=== PATIENT | female | born 1960 | race Caucasian/White ===

== ENCOUNTER 2019-11-10 12:04 | Outpatient (REF) | payer OTHER, SELFPAY ==
[2019-11-10 21:34] LABS: ALT 23 U/L (14-59); AST 19 U/L (15-37); Alkaline Phosphatase 92 U/L (46-116); Anion Gap 9.6 mmol/L (3-11); BUN 21 mg/dL (7-18); Bilirubin, Total 0.3 mg/dL (0.2-1.0); CO2 26.4 mmol/L (21.0-32.0); CREATININE 0.95 mg/dL (0.55-1.02); Calcium 9.3 mg/dL (8.5-10.1); Calculated LDL 295 mg/dL (<100); Chloride 105 mmol/L (98-107); Cholesterol 384 mg/dL (<200); Glucose 90 mg/dL (74-106); HDL Cholesterol 61 mg/dL (40-60); Potassium 4.1 mmol/L (3.5-5.1); Sodium 141 mmol/L (136-145); TSH (W/Ref FT4) 4.36 uIU/mL (0.36-3.74); Triglyceride 140 mg/dL (<150)
[2019-11-10 22:09] LABS: FREE T4 0.84 ng/dL (0.76-1.46)
[2019-12-10 09:43] LABS: Fungus Smear No Fungi Seen
== END 2019-11-10 12:24 ==
LOC: NCHCN 12:04
PROVIDERS: PCP Family Medicine; Visit Provider Nurse Practitioner Family
DX: L60.8 Other nail disorders (principal); L60.3 Nail dystrophy; E78.5 Hyperlipidemia, unspecified
CPT/HCPCS: 80053; 80061; 87101; 87206; 84439; 84443

== ENCOUNTER 2020-01-27 09:07 | Outpatient (REF) | payer OTHER, SELFPAY ==
[2020-01-27 21:17] LABS: ALT 30 U/L (14-59); AST 28 U/L (15-37); Albumin 3.8 g/dL (3.4-5.0); Alkaline Phosphatase 95 U/L (46-116); Anion Gap 6.8 mmol/L (3-11); BUN 17 mg/dL (7-18); Bilirubin, Total 0.3 mg/dL (0.2-1.0); CO2 27.2 mmol/L (21.0-32.0); CREATININE 0.89 mg/dL (0.55-1.02); Calcium 8.7 mg/dL (8.5-10.1); Chloride 105 mmol/L (98-107); Glucose 93 mg/dL (74-106); Potassium 4.2 mmol/L (3.5-5.1); Sodium 139 mmol/L (136-145); TSH (W/Ref FT4) 2.01 uIU/mL (0.36-3.74); Total Protein 6.5 g/dL (6.4-8.2)
[2020-01-27 21:45] LABS: Calculated LDL 211 mg/dL (<100); Cholesterol 290 mg/dL (<200); HDL Cholesterol 61 mg/dL (40-60); Triglyceride 92 mg/dL (<150)
== END 2020-01-27 09:27 ==
LOC: NCHCN 09:07
PROVIDERS: PCP Family Medicine; Visit Provider Nurse Practitioner Family
DX: E78.5 Hyperlipidemia, unspecified (principal); E66.9 Obesity, unspecified
CPT/HCPCS: 80053; 80061; 84443

== ENCOUNTER 2021-01-28 13:36 | Outpatient (REF) | payer OTHER, SELFPAY ==
[2021-01-28 14:08] LABS: ALT 46 U/L (14-59); AST 31 U/L (15-37); Albumin 3.8 g/dL (3.4-5.0); Alkaline Phosphatase 97 U/L (46-116); BUN 14 mg/dL (7-18); Bilirubin, Total 0.7 mg/dL (0.2-1.0); CREATININE 0.7 mg/dL (0.55-1.02); Calcium 8.8 mg/dL (8.5-10.1); Calculated LDL 278 mg/dL (<100); Chloride 105 mmol/L (98-107); Cholesterol 356 mg/dL (<200); Glucose 91 mg/dL (74-106); HDL Cholesterol 63 mg/dL (40-60); Potassium 4.1 mmol/L (3.5-5.1); Sodium 142 mmol/L (136-145); TSH (W/Ref FT4) 1.21 uIU/mL (0.36-3.74); Total Protein 6.8 g/dL (6.4-8.2); Triglyceride 79 mg/dL (<150)
[2021-01-31 04:51] LABS: Vitamin D 25 Total 39.8 ng/mL (30-100)
== END 2021-01-28 13:37 | disposition home or self-care (01) ==
LOC: NCHCN 13:36
PROVIDERS: PCP Family Medicine; Visit Provider Family Medicine
DX: Z00.00 Encounter for general adult medical examination without abnormal findings (principal); R94.6 Abnormal results of thyroid function studies; E55.9 Vitamin D deficiency, unspecified; E66.9 Obesity, unspecified
CPT/HCPCS: 80053; 80061; 82306; 84443

== ENCOUNTER 2021-03-11 08:45 | Outpatient (REF) | payer OTHER, SELFPAY ==
--- NOTE | 2021-03-11 08:20 | SKI_PTH ---
PATIENT: Kenisha Clifton LOC: [facility] U#:[id number] AGE/SX: 60/F ROOM: RE03/11/[address]: Emma Toussaint : 1960 BED: DIS: 03/11/2021 SPEC #: [id number] RECD: 03/11/21 15:03 STATUS: VERÓNICA RECandice #: [id number] GUADALUPE: 03/11/21 08:[address]: Emma Toussaint DEPT: Surgical Specimen RECD BY: Henna High ENTERED: 03/11/21 15:05 SP TYPE: SKI OT DR: Matilde Sandy Tissues: SKIN BIOPSY(SHAVE/PUNCH) Procedures: SKIN LEVEL 4 Comments: [id number]
== END 2021-03-11 08:46 | disposition home or self-care (01) ==
LOC: NCHCN 08:45
PROVIDERS: PCP Family Medicine; Visit Provider Registered Nurse
DX: M79.81 Nontraumatic hematoma of soft tissue (principal); L85.8 Other specified epidermal thickening
CPT/HCPCS: 88305

== ENCOUNTER 2022-04-25 20:18 | Outpatient (REF) | payer OTHER, SELFPAY ==
[2022-04-25 17:47] LABS: ALT 27 U/L (14-59); AST 37 U/L (15-37); Albumin 3.7 g/dL (3.4-5.0); Alkaline Phosphatase 89 U/L (46-116); Anion Gap 7.8 mmol/L (3-11); BUN 17 mg/dL (7-18); Bilirubin, Total 0.7 mg/dL (0.2-1.0); CO2 26.2 mmol/L (21.0-32.0); CREATININE 0.8 mg/dL (0.55-1.02); Calcium 8.8 mg/dL (8.5-10.1); Calculated LDL 234 mg/dL (<100); Chloride 105 mmol/L (98-107); Cholesterol 312 mg/dL (<200); Glucose 91 mg/dL (74-106); HDL Cholesterol 62 mg/dL (40-60); Potassium 3.8 mmol/L (3.5-5.1); Sodium 139 mmol/L (136-145); Total Protein 6.9 g/dL (6.4-8.2); Triglyceride 80 mg/dL (<150)
== END 2022-04-25 20:19 | disposition home or self-care (01) ==
LOC: NCHCN 20:18
PROVIDERS: PCP Family Medicine; Visit Provider Family Medicine
DX: Z00.00 Encounter for general adult medical examination without abnormal findings (principal); E78.49 Other hyperlipidemia; E66.9 Obesity, unspecified
CPT/HCPCS: 80053; 80061

== ENCOUNTER 2022-05-30 20:15 | Outpatient (REF) | payer OTHER, SELFPAY ==
[2022-05-30 21:28] LABS: Abs Immature Grans 0.01 10^3/uL (0.0-0.06); Absolute Basophil Count 0.03 10^3/uL (0.0-0.2); Absolute Eosinophil Count 0.05 10^3/uL (0.0-0.7); Absolute Lymphocyte Count 1.79 10^3/uL (1.2-3.4); Absolute Monocyte Count 0.34 10^3/uL (0.1-0.8); Absolute Neutrophil Count 2.79 10^3/uL (1.2-6.7); Basophils % 0.6; HCT 42.1 % (36.0-46.0); HGB 14.5 g/dL (11.2-15.7); Immature Grans % 0.2; Lymphocytes % 35.7; MCH 30.1 pg (27.0-33.0); MCHC 34.4 % (32.0-36.0); MCV 88 fL (80-95); MPV 11.7 fL (8.0-11.0); Monocytes % 6.8; Neutrophils % 55.7; Platelet Count 219 10^3/uL (130-400); RBC 4.81 10^6/uL (3.93-5.22); RDW 12.5 % (11.7-14.6); RDW-SD 40.3 fL; WBC 5.01 10^3/uL (4.4-10.8)
[2022-05-30 22:19] LABS: TSH (W/Ref FT4) 2.15 uIU/mL (0.36-3.74)
[2022-06-01 05:38] LABS: Vitamin D 25 Total 34.6 ng/mL (30-100)
== END 2022-05-30 20:16 | disposition home or self-care (01) ==
LOC: NCHCN 20:15
PROVIDERS: PCP Family Medicine; Visit Provider Family Medicine
DX: E55.9 Vitamin D deficiency, unspecified (principal); D69.6 Thrombocytopenia, unspecified; L60.3 Nail dystrophy; E03.9 Hypothyroidism, unspecified
CPT/HCPCS: 82306; 84443; 85025

== ENCOUNTER 2023-05-29 16:07 | Outpatient (REF) | payer OTHER, SELFPAY ==
[2023-05-29 17:47] LABS: ALT 24 U/L (14-59); AST 26 U/L (15-37); Albumin 3.7 g/dL (3.4-5.0); Alkaline Phosphatase 83 U/L (46-116); Anion Gap 7.3 mmol/L (3-11); BUN 17 mg/dL (7-18); Bilirubin, Total 0.6 mg/dL (0.2-1.0); CO2 26.7 mmol/L (21.0-32.0); Calculated LDL 238 mg/dL (<100); Chloride 105 mmol/L (98-107); Cholesterol 319 mg/dL (<200); Estimated GFR 64.49 (mL/min/1.73m2); Glucose 92 mg/dL (74-106); HDL Cholesterol 54 mg/dL (40-60); Potassium 4.3 mmol/L (3.5-5.1); Sodium 139 mmol/L (136-145); Total Protein 6.9 g/dL (6.4-8.2); Triglyceride 138 mg/dL (<150)
== END 2023-05-29 16:08 | disposition home or self-care (01) ==
LOC: NCHCN 16:07
PROVIDERS: PCP Family Medicine; Visit Provider Family Medicine
DX: Z00.00 Encounter for general adult medical examination without abnormal findings (principal); E78.49 Other hyperlipidemia; E55.9 Vitamin D deficiency, unspecified; E66.9 Obesity, unspecified
CPT/HCPCS: 80053; 80061; 82306

== ENCOUNTER 2024-05-30 09:45 | Outpatient (REF) | payer OTHER, SELFPAY ==
[2024-05-30 15:55] LABS: ALT 21 U/L (14-59); AST 23 U/L (15-37); Albumin 3.8 g/dL (3.4-5.0); Alkaline Phosphatase 93 U/L (46-116); BUN 16 mg/dL (7-18); Bilirubin, Total 0.41 mg/dL (0.2-1.0); CREATININE 0.9 mg/dL (0.55-1.02); Calcium 8.9 mg/dL (8.5-10.1); Calculated LDL 218 mg/dL (<100); Chloride 106 mmol/L (98-107); Cholesterol 316 mg/dL (<200); Estimated GFR 72.73 (mL/min/1.73m2); Glucose 88 mg/dL (74-106); HDL Cholesterol 61 mg/dL (40-60); Potassium 4.1 mmol/L (3.5-5.1); Sodium 139 mmol/L (136-145); Triglyceride 187 mg/dL (<150)
== END 2024-05-30 09:46 | disposition home or self-care (01) ==
LOC: NCHCN 09:45
PROVIDERS: PCP Family Medicine; Visit Provider Family Medicine
DX: E78.5 Hyperlipidemia, unspecified (principal)
CPT/HCPCS: 80053; 80061

== ENCOUNTER 2024-06-06 17:17 | Outpatient (REF) | payer OTHER, SELFPAY ==
[2024-06-06 22:06] LABS: TSH 1.53 uIU/Ml (0.36-3.74); Vitamin D 25 Total 30.4 ng/mL (30-100)
== END 2024-06-06 17:18 | disposition home or self-care (01) ==
LOC: NCHCN 17:17
PROVIDERS: PCP Family Medicine; Visit Provider Family Medicine
DX: E55.9 Vitamin D deficiency, unspecified (principal); Z86.39 Personal history of other endocrine, nutritional and metabolic disease
CPT/HCPCS: 82306; 84443

== ENCOUNTER 2025-06-02 19:26 | Outpatient (REF) | payer OTHER, SELFPAY ==
[2025-06-02 20:29] LABS: ALT 25 U/L (14-59); AST 25 U/L (15-37); Albumin 3.7 g/dL (3.4-5.0); Alkaline Phosphatase 76 U/L (46-116); Anion Gap 6.8 mmol/L (3-11); BUN 17 mg/dL (7-18); Bilirubin, Total 0.6 mg/dL (0.2-1.0); CO2 27.2 mmol/L (21.0-32.0); Calcium 8.7 mg/dL (8.5-10.1); Chloride 107 mmol/L (98-107); Cholesterol 245 mg/dL (<200); Estimated GFR 83.26 (mL/min/1.73m2); Glucose 86 mg/dL (74-106); Potassium 4.3 mmol/L (3.5-5.1); Sodium 141 mmol/L (136-145); TSH 1.73 uIU/mL (0.36-3.74); Total Protein 6.6 g/dL (6.4-8.2); Triglyceride 68 mg/dL (<150); Vitamin D 25 Total 46 ng/mL (30-100)
[2025-06-03 04:56] LABS: Calculated LDL 178 mg/dL (<100); HDL Cholesterol 54 mg/dL (>or=50)
== END 2025-06-02 19:27 | disposition home or self-care (01) ==
LOC: NCHCN 19:26
PROVIDERS: PCP Family Medicine; Visit Provider Family Medicine
DX: Z00.00 Encounter for general adult medical examination without abnormal findings (principal); E78.5 Hyperlipidemia, unspecified; Z86.39 Personal history of other endocrine, nutritional and metabolic disease; E55.9 Vitamin D deficiency, unspecified
CPT/HCPCS: 80053; 80061; 82306; 84443